=== PATIENT | male | born 1940 | race Caucasian/White ===

== ENCOUNTER 2019-02-12 07:00 | Day surgery (SDC) | payer OTHER ==
[~2019-02-12] VITALS: Ht 165.1 cm; Wt 81.6 kg
[~2019-02-12 07:00] MED LIST: ASA81 MG PO; CALAN SR120 MG PO; HYDROCHLOROTH12.5 MG PO; MOVIC PO
[2019-02-13] MEDS ORDERED: INTESTINEX680 M1 PO (13:58)
[2019-02-13] MEDS ORDERED: DICLOFENAC SODI75 MG PO (13:59)
== END 2019-02-13 08:46 | disposition home or self-care (01) ==
LOC: CIR.AMB 07:00 → SURH 09:15 → EDSTATUS 09:15 → SURH 10:15 → O/R 10:30 → SURH 10:30 → O/R 14:21 → SURH 14:21 → CIR.AMB 02-13 08:46 → SURH 02-13 14:15 → O/R 02-13 14:15 → SURH 02-17 09:15
DX: C7A.020 Malignant carcinoid tumor of the appendix (principal)